=== PATIENT | male | born 1960 | race Caucasian/White ===

== ENCOUNTER 2024-11-26 17:56 | Outpatient (REF) | payer MEDICARE, SELFPAY ==
[2024-11-26 19:43] LABS: Abs Immature Grans 0.01 10^3/uL (0.0-0.06); Absolute Basophil Count 0.07 10^3/uL (0.0-0.2); Absolute Eosinophil Count 0.32 10^3/uL (0.0-0.7); Absolute Lymphocyte Count 1.56 10^3/uL (1.2-3.4); Absolute Monocyte Count 0.66 10^3/uL (0.1-0.8); Absolute Neutrophil Count 2.65 10^3/uL (1.2-6.7); Basophils % 1.3 %; Eosinophils % 6.1 %; HCT 46.8 % (40.0-50.0); HGB 14.9 g/dL (13.5-17.5); Immature Grans % 0.2 %; Lymphocytes % 29.6 %; MCH 21.9 pg (27.0-33.0); MCHC 31.8 % (32.0-36.0); MCV 69 fL (80-95); MPV 10.1 fL (8.0-11.0); Monocytes % 12.5 %; Neutrophils % 50.3 %; Platelet Count 188 10^3/uL (130-400); RDW 16.9 % (11.8-14.1); RDW-SD 37.5 fL; WBC 5.27 10^3/uL (4.4-10.8)
[2024-11-26 19:59] LABS: Diff Comment RBC Morph Reviewed
[2024-11-26 20:00] LABS: Microcytosis 1+
[2024-11-26 20:23] LABS: ALT 23 U/L (16-63); AST 19 U/L (15-37); Albumin 4.2 g/dL (3.4-5.0); Alkaline Phosphatase 83 U/L (46-116); Anion Gap 9.3 mmol/L (3-11); BUN 8 mg/dL (7-18); Bilirubin, Total 0.8 mg/dL (0.2-1.0); CO2 26.7 mmol/L (21.0-32.0); CREATININE 0.9 mg/dL (0.70-1.30); Calcium 9.5 mg/dL (8.5-10.1); Calculated LDL 81 mg/dL (<100); Chloride 101 mmol/L (98-107); Cholesterol 155 mg/dL (<200); Estimated GFR 94.78 (mL/min/1.73m2); Glucose 75 mg/dL (74-106); HDL Cholesterol 42 mg/dL (>or=40); Sodium 137 mmol/L (136-145); TSH 1.63 uIU/mL (0.36-3.74); Triglyceride 162 mg/dL (<150)
[2024-11-26 20:48] LABS: Hemoglobin A1C 6.2 % (<5.7)
[2024-11-26 21:25] LABS: Vitamin D 25 Total 114 ng/mL (30-100)
== END 2024-11-26 17:57 | disposition home or self-care (01) ==
LOC: NCHCN 17:56
PROVIDERS: Visit Provider Family Medicine
DX: Z00.00 Encounter for general adult medical examination without abnormal findings (principal); K70.30 Alcoholic cirrhosis of liver without ascites
CPT/HCPCS: 80053; 80061; 82306; 83036; 84443; 85025; 85610; 85730

== ENCOUNTER 2025-05-31 15:41 | Outpatient (REF) | payer MEDICARE, MEDICAID, SELFPAY ==
[2025-05-31 15:40] LABS: Abs Immature Grans 0.02 10^3/uL (0.0-0.06); HCT 43.0 % (40.0-50.0); HGB 13.4 g/dL (13.5-17.5); Immature Grans % 0.4 %; MCH 21.5 pg (27.0-33.0); MCHC 31.2 % (32.0-36.0); MCV 69 fL (80-95); MPV 10.3 fL (8.0-11.0); Platelet Count 161 10^3/uL (130-400); RBC 6.24 10^6/uL (4.36-5.78); RDW 16.0 % (11.8-14.1); RDW-SD 38.2 fL; WBC 5.42 10^3/uL (4.4-10.8)
[2025-05-31 15:51] LABS: ALT 11 U/L (10-49); AST 16 U/L (<34); Albumin 4.1 g/dL (3.2-5.0); Alkaline Phosphatase 77 U/L (46-116); Anion Gap 8.9 mmol/L (3-11); BUN 8 mg/dL (9-23); Bilirubin, Total 0.7 mg/dL (0.2-1.2); CO2 26.1 mmol/L (20.0-31.0); Calcium 9.5 mg/dL (8.3-10.6); Chloride 106 mmol/L (98-107); Glucose 97 mg/dL (74-106); Iron 112 ug/dL (65-175); Potassium 4.1 mmol/L (3.5-5.1); Sodium 141 mmol/L (136-145); Total Protein 7.5 g/dL (5.7-8.2)
[2025-05-31 15:52] LABS: Vitamin D 25 Total 58 ng/mL (30-100)
[2025-05-31 15:59] LABS: Microcytosis 1+
== END 2025-05-31 15:42 | disposition home or self-care (01) ==
LOC: NCHCN 15:41
PROVIDERS: Visit Provider Family Medicine
DX: R71.8 Other abnormality of red blood cells (principal); K70.30 Alcoholic cirrhosis of liver without ascites; E67.3 Hypervitaminosis D; R78.1 Finding of opiate drug in blood
CPT/HCPCS: 80053; 82306; 83540; 85025